=== PATIENT | male | born 1965 ===

== ENCOUNTER 2018-07-08 08:21 | Outpatient (CLI) | payer OTHER ==
[~2018-07-08] VITALS: Ht 152.4 cm; Wt 82.6 kg
== END 2018-07-08 08:40 | disposition home or self-care (01) ==
LOC: OFIC 805 08:21
DX: R42 Dizziness and giddiness (principal); H90.41 Sensorineural hearing loss, unilateral, right ear, with unrestricted hearing on the contralateral side; H93.11 Tinnitus, right ear